=== PATIENT | male | born 1950 | race Caucasian/White ===

== ENCOUNTER 2018-02-21 05:55 | Day surgery (SDC) | payer MEDICARE, OTHER ==
[~2018-02-21] VITALS: Ht 180.3 cm; Wt 94.3 kg
[~2018-02-21 05:55] MED LIST: MULTIVITAMI9 PO
[2018-02-21 07:48] VITALS: BP 118/65
== END 2018-02-21 08:00 | disposition home or self-care (01) ==
LOC: ENDO 05:55
PROVIDERS: ATTEND Surgery
PROC: 0DJD8ZZ Inspection of Lower Intestinal Tract, Via Natural or Artificial Opening Endoscopic (ICD-10-PCS; principal; 2018-02-21)
DX: Z12.11 Encounter for screening for malignant neoplasm of colon (principal)

== ENCOUNTER 2020-02-15 21:09 | Observation (INO) | payer MEDICARE, OTHER ==
[~2020-02-15] VITALS: Ht 180.3 cm; Wt 98.0 kg
--- NOTE | 2020-02-15 21:09 | NUR ---
TO ROOM 9 FOR TRIAGE
--- NOTE | 2020-02-15 21:33 | NUR ---
PT. TO ROOM 9 WITH C/O BILATERAL ARM TINGLING AND LEFT SIDED JAW DISCOMFORT AND JUST NOT FEELING RIGHT THE LAST COUPLE OF DAYS. PT. STATES HIS IS AT [facility] WITH A 5 VESSEL BYPASS. NO C/O CP OR SOB OFFERED AT THIS TIME. PT. ALSO STATES HE TOOK SOME TUMS THE LAST COUPLE OF DAYS.
[2020-02-15] MEDS ORDERED: ASPIRIN ADULT325 MG PO (21:43)
--- NOTE | 2020-02-15 21:43 | NUR ---
IV ANTIEMETIC GIVEN PER MD ORDER.
[2020-02-15 21:44] LABS: HEMATOCRIT 42.5 % (39.0-50.0); HEMOGLOBIN 14.9 g/dl (14.0-18.0); IMMATURE GRANULOCYTES 0.3 % (0.0-5.0); MEAN CELL VOLUME 93.2 fL CALC (80.0-100.0); MEAN CORPUSCULAR HGB 32.7 pG CALC (26.0-32.0); MEAN CORPUSCULAR HGB CONC 35.1 g/dL CAL (32.0-36.0); NEUT# 3.77 thou/uL (1.82-7.42); RED BLOOD COUNT 4.56 mill/uL (4.70-6.10); RED CELL DISTRI WIDTH 13.2 % (11.5-15.5); URINE BILIRUBIN - DIPSTICK NEGATIVE (NEGATIVE); URINE BLOOD DIPSTICK NEGATIVE (NEGATIVE); URINE COLOR YELLOW; URINE GLUCOSE - DIPSTICK NEGATIVE (NEGATIVE); URINE KETONE NEGATIVE (NEGATIVE); URINE LEUK ESTERASE NEGATIVE (NEGATIVE); URINE NITRITE - DIPSTICK NEGATIVE (Negative); URINE PROTEIN - DIPSTICK NEGATIVE (NEG-TRACE); URINE SPECIFIC GRAVITY 1.025; URINE UROBILINOGEN - DIPSTICK 0.2 E.U./dL (0.2)
[2020-02-15 21:49] LABS: BARBITURATES NEGATIVE (NEGATIVE); COCAINE NEGATIVE (NEGATIVE); METHADONE NEGATIVE (NEGATIVE); OXCYCODONE NEGATIVE (NEGATIVE); TETRAHYDROCANNABIONOL NEGATIVE (NEGATIVE); TRICYLIC ANTIDEPRESSANTS NEGATIVE (NEGATIVE)
--- NOTE | 2020-02-15 21:50 | NUR ---
NITRO-PASTE APPLIED PER MD ORDER.
[2020-02-15 22:01] LABS: ALBUMIN 4.3 g/dL (3.2-5.0); ALKALINE PHOSPHATASE 71 u/l (38-126); AMYLASE 67 u/l (30-110); ANION GAP 13 (6-22 (CALC)); BILIRUBIN, TOTAL 0.7 mg/dL (0.0-1.4); BUN 25 mg/dL (8-23); BUN/CREATININE RATIO 23 (12-20 (CALC)); CARBON DIOXIDE 25 mmol/l (22-30); CHLORIDE 106 mmol/l (95-108); CREATININE 1.1 mg/dL (0.7-1.3); ETHYL ALCOHOL 0 mg/dl (0-30); GFR > 60 ML/MIN (>=60 (CALC)); GFR FOR AFR.AMER. > 60 ML/MIN (>=60 (CALC)); LIPASE 178 u/l (23-300); MAGNESIUM 1.9 mg/dL (1.6-2.3); POTASSIUM 4.2 mmol/l (3.5-5.1); SGOT/AST 31 u/l (19-48); SODIUM 140 mmol/l (137-146); TOTAL PROTEIN 7.3 g/dL (6.3-8.2)
[2020-02-15 22:03] LABS: ACT PARTIAL THROMBO TIME 25.9 SECONDS (20.0-32.5); PROTHROMBIN TIME 10.1 SECONDS (9.0-12.5)
--- NOTE | 2020-02-15 22:41 | NUR ---
IV ABT. GIVEN PER MD ORDER.
--- NOTE | 2020-02-15 22:48 | NUR ---
IN ROOM TO DISCUSS CLINICAL FINDINGS WITH PT. VERBALIZED UNDERSTANDING.
--- NOTE | 2020-02-15 22:51 | NUR ---
PT. MADE AWARE OF ADMISSION, VERBALIZED UNDERSTANDING.
--- NOTE | 2020-02-15 23:51 | NUR ---
RESTING ON STRETCHER, NO C/O AT THIS TIME. V/S STABLE.
--- NOTE | 2020-02-16 00:06 | NUR ---
Admission Note Report Given to: ARAVIND HAWK Transported by: Wheelchair X Stretcher Transported with: X Nurse Transporter X Patent IV O2 X Frame Opener Location: ICU X MS2
--- NOTE | 2020-02-16 00:21 | NUR ---
PT. TAKEN TO [place] FLOOR VIA STRETCHER.
--- NOTE | 2020-02-16 00:29 | NUR ---
PT ARRIVED TO FLOOR VIA STRETCHER ACCOMPAINED BY ER STAFF. PT ALERT AND ORIENTED. NO APPARENT DISTRESS NOTED. PT DENIES ANY PAIN OR DISCOMFORT. IV SITE APPEARS HEALTHY. 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 DISCUSSED POC AND ORIENTED TO ROOM AND CALL LIGHT SYSTEM. PT VERBALIZED UNDERSTANDING. CALL LIGHT WITHIN REACH. WILL CONTINUE TO MONITOR.
[2020-02-16 00:30] VITALS: BP 148/74
--- NOTE | 2020-02-16 04:16 | NUR ---
PT RESTING IN BED WITH EYES CLOSED. NO APPARENT DISTRESS NOTED. CALL LIGHT WITHIN REACH. WILL CONTINUE TO MONITOR.
[2020-02-16 04:30] VITALS: BP 121/58
--- NOTE | 2020-02-16 06:00 | NUR ---
LABS DRAWN AND SENT TO LAB AT THIS TIME. PT TOLERATED WELL.
[2020-02-16 07:56] VITALS: BP 127/63
--- NOTE | 2020-02-16 08:00 | NUR ---
PT IS AWAKE, ALERT, AMBULATORY IN ROOM. NO COMPLAINT OF CHEST PAIN OR SHORTNESS OF BREATH. PT DOES FEEL LIKE HE HAS INDIGESTION. HR 52, PT STATES THAT HE IS ALWAYS SLOW.
[2020-02-16 10:45] VITALS: BP 144/73
--- NOTE | 2020-02-16 13:29 | NUR ---
PT EXPRESSES CONCERN FOR HIS , RECENT SURGERY AT [facility]. PT CONTINUES AMBULATORY IN ROOM, NO DISTRESS.
[2020-02-16 15:05] VITALS: BP 144/73
[2020-02-16] MEDS ORDERED: PROTONIX40 M2 PO (15:15)
[2020-02-16] MEDS ORDERED: ZPAK PO (15:29)
--- NOTE | 2020-02-16 16:47 | NUR ---
PT HAS BEEN DISCHARGED TO HOME. PT VERBALIZED UNDERSTANDING OF DC INSTRUCTIONS, AMBULATES TO LOBBY WITH NURSE. PT LEAVES DM IN STABLE CONDITION, AWARE OF THE NEED TO SELF-ISOLATE UNTIL COVID-19 RESULT IS KNOWN.
--- NOTE | 2020-02-18 10:20 | NUR ---
Notified patient of Covid results (Negative). Advised pt to follow up with PCP or come to ED for urgent needs. Advised pt to continue to practice Covid prevention such as handwashing and avoiding contact with others. Patient verbalized understanding.
== END 2020-02-16 16:40 | disposition home or self-care (01) ==
LOC: ED 21:09 → ED-I 22:30 → ED 23:13 → MS2 23:14
PROVIDERS: ADMIT Internal Medicine; ATTEND Internal Medicine
DX: J18.9 Pneumonia, unspecified organism (principal); R07.9 Chest pain, unspecified; I48.91 Unspecified atrial fibrillation; Z20.828 Contact with and (suspected) exposure to other viral communicable diseases
CPT/HCPCS: G0378

== ENCOUNTER 2021-01-17 14:07 | Emergency (ER) | payer MEDICARE, OTHER ==
[~2021-01-17] VITALS: Ht 180.3 cm; Wt 93.2 kg
[~2021-01-17 14:07] MED LIST changes: +ASPIRIN ADULT325 MG PO; +PROTONIX40 M2 PO; +ZPAK PO
[2021-01-17] MEDS ORDERED: BP MED PO (14:25)
[2021-01-17 15:02] LABS: HEMATOCRIT 42.2 % (39.0-50.0); HEMOGLOBIN 14.5 g/dl (14.0-18.0); IMMATURE GRANULOCYTES 0.5 % (0.0-5.0); MEAN CELL VOLUME 94.8 fL CALC (80.0-100.0); MEAN CORPUSCULAR HGB 32.6 pG CALC (26.0-32.0); MEAN CORPUSCULAR HGB CONC 34.4 g/dL CAL (32.0-36.0); NEUT# 4.21 thou/uL (1.82-7.42); RED BLOOD COUNT 4.45 mill/uL (4.70-6.10); RED CELL DISTRI WIDTH 13.2 % (11.5-15.5)
[2021-01-17 15:16] LABS: ALBUMIN 4.4 g/dL (3.2-5.0); ALKALINE PHOSPHATASE 85 u/l (38-126); ANION GAP 13 (6-22 (CALC)); BILIRUBIN, TOTAL 0.7 mg/dL (0.0-1.4); BUN 20 mg/dL (8-23); BUN/CREATININE RATIO 18 (12-20 (CALC)); CARBON DIOXIDE 23 mmol/l (22-30); CHLORIDE 105 mmol/l (95-108); CREATININE 1.1 mg/dL (0.7-1.3); GFR > 60 ML/MIN (>=60 (CALC)); GFR FOR AFR.AMER. > 60 ML/MIN (>=60 (CALC)); LIPASE 113 u/l (23-300); POTASSIUM 4.1 mmol/l (3.5-5.1); SGOT/AST 35 u/l (19-48); SODIUM 137 mmol/l (137-146); TOTAL PROTEIN 7.4 g/dL (6.3-8.2)
[2021-01-17] MEDS ORDERED: FLEXERIL5 M1 PO (16:52)
[2021-01-17 16:56] VITALS: BP 178/80
== END 2021-01-17 17:30 | disposition home or self-care (01) ==
LOC: ED 14:07
DX: S39.011A Strain of muscle, fascia and tendon of abdomen, initial encounter (principal); S30.1XXA Contusion of abdominal wall, initial encounter; I10 Essential (primary) hypertension; X50.0XXA Overexertion from strenuous movement or load, initial encounter; Y93.89 Activity, other specified; Y92.89 Other specified places as the place of occurrence of the external cause